=== PATIENT | female | born 1950 | race African-American/Black ===

== ENCOUNTER 2018-11-09 21:08 | Inpatient (IN) | payer OTHER ==
[~2018-11-09] VITALS: Ht 160 cm; Wt 39.6 kg
--- NOTE | 2018-11-09 21:25 | NUR ---
Patient bib w/c accompanied by daughter,caregiver. Patient is Alert but non-verbal. Patient is brought in for c/o smelly urine and unusual changes in feeding habits and sleep patterns per daughter. Respiratory even and unlabored, no cough, no sob. (+) skin tent. No v/d. Patient in bed at lowest position, side rails upx2, call light within reach. Fall precautions implemented per protocol.
[2018-11-09] MEDS ORDERED: IV NORMAL SALINE 1000 ML BAG IV ONE (21:45)
[2018-11-09 22:27] LABS: BASOPHILS % (AUTO) 0.5 % (0.0-2.0); EOSINOPHILS % (AUTO) 0.4 % (0.0-7.0); HEMATOCRIT 40.3 % (31.2-41.9); HEMOGLOBIN 13.1 g/dL (10.9-14.3); LYMPHOCYTES # (AUTO) 2.4 K/uL (20.0-40.0); LYMPHOCYTES % (AUTO) 34.6 % (20.5-51.5); MEAN CORPUSCULAR HEMOGLOBIN 29.2 uug (24.7-32.8); MEAN CORPUSCULAR HGB CONC 33 g/dL (32.3-35.6); MEAN CORPUSCULAR VOLUME 89.9 fL (75.5-95.3); MONOCYTES # (AUTO) 0.4 K/uL (2.0-10.0); MONOCYTES % (AUTO) 6.2 % (0.0-11.0); NEUTROPHILS % (AUTO) 58.3 % (38.5-71.5); PLATELET COUNT (AUTO) 192 K/uL (179-408); RED BLOOD CELL COUNT(AUTO) 4.48 MIL/uL (3.63-4.92); WHITE BLOOD COUNT (AUTO) 6.8 K/uL (3.8-11.8)
[2018-11-09 22:38] LABS: CREATININE 1.1 mg/dL (0.6-1.3); POTASSIUM 3.2 mmol/L (3.5-5.1)
[2018-11-09 22:44] LABS: BILIRUBIN,DIRECT 0.1 mg/dL (0.0-0.2); BILIRUBIN,TOTAL 0.3 mg/dL (0.2-1.0); TOTAL PROTEIN, SERUM 8.4 g/dL (6.4-8.2)
--- NOTE | 2018-11-09 22:53 | NUR ---
Per daughter, pt does not take any medications.
--- NOTE | 2018-11-09 22:55 | NUR ---
Dr. Serrano on panel call with Dr. Fito Rubi. Pt accepted for admission to [facility], diagnosis: dehydration.
--- NOTE | 2018-11-09 22:58 | NUR ---
IV fluids stopped per MD order,
--- NOTE | 2018-11-09 22:58 | NUR ---
Received call from 3rd floor, pt. to go into tele. room [id number]
[2018-11-09] MEDS ORDERED: SODIUM CHLORIDE IV ONE (23:00)
[2018-11-10] MEDS ORDERED: ACETAMINOPHEN 325 MG TABLET PO PRN (00:15)
[2018-11-10] MEDS ORDERED: IV DEXTROSE 5%-0.9%NS+20MeqKCL 1,000 ML IV PRN (00:15)
[2018-11-10] MEDS ORDERED: ONDANSETRON 4 MG/2 ML VIAL IV PRN (00:15)
[2018-11-10 00:18] LABS: *BILIRUBIN,URIN NEGATIVE (NEGATIVE); *BLOOD, URINE 3+ (NEGATIVE); *CLARITY,URINE SLIGHTLY CLOUDY (CLEAR); *COLOR,URINE YELLOW (YELLOW); *KETONES,URINE NEGATIVE (NEGATIVE); *UROBILINOGEN,URINE 0.2 E.U./dl (NORMAL); LEUKOCYTE ESTERASE ,URINE 1+ (NEGATIVE); NITRITE, URINE NEGATIVE (NEGATIVE); UGLUCOSE NEGATIVE (NEGATIVE)
[2018-11-10 00:21] LABS: BACTERIA,URINE MODERATE /HPF (NONE SEEN); RBC,URINE 50-80 /HPF (0-3); SQUAMOUS EPITHELIAL CELL,UR FEW /HPF (NONE SEEN); WBC,URINE 50-80 /HPF (0-3)
[2018-11-10 00:30] VITALS: BP 96/78
--- NOTE | 2018-11-10 00:30 | NUR ---
NEW ADMIT PATIENT RECEIVED ON UNIT WITH FAMILY MEMBER AT SIDE. PATIENT IS ALERT/ORIENTED X1 AND IS NONVERBAL WITH A HISTORY OF DEMENTIAL AND ALZHEIMER'S DISEASE AND IS BEING ADMITTED FOR DEHYDRATION. PER DAUGHTER THERE IS NO ADVANCE DIRECTIVE OR LIVING WILL. PATIENT IS ON TELE MONITOR WITH NORMAL SINUS RHYTHM. VS ARE WNL AND PATIENT IS STABLE. IV IS ON RIGHT WRIST 22 GUAGE WITH 1/2 NS @ 125 mL/HR. BECKWITH CATHETER IN PLACE AND SECURED TO LEFT LEG. DAUGHTER IS PRIMARY CAREGIVER AND PROVIDED PATIENT HISTORY DUE TO PATIENT'S CONDITION. PATIENT TAKES NO HOME MEDICATIONS. PATIENT'S LEFT BUTTOCK SHOWS EXTENSIVE SCAR WHICH IS RELATED TO A PREVIOUS INJURY THAT WAS CARED FOR IN [facility] BUT DOES NOT HAVE SPECIFIC DATE. THE REST OF PATIENT'S SKIN IS INTACT. ORDERS INITIATED FOR PT/OT EVAL DUE TO LOWER EXTREMITY WEAKNESS AND CONTRACTURE. CASE MANAGEMENT REFERRAL COMPLETED. DIETARY CONSULT INITIATED DUE TO LOW BMI OF PATIENT. WILL CONTINUE TO MONITOR.
[2018-11-10 03:49] VITALS: BP 110/68
--- NOTE | 2018-11-10 04:38 | NUR ---
PATIENT RESTED COMFORTABLY THROUGHOUT NIGHT. IV SITE PATENT AND INTACT. BECKWITH CATHETER DRAINING WELL WITH CLEAR, YELLOW URINE. CAREGIVER BY SIDE. ALL SAFETY AND FALL PRECAUTION MEASURES IN PLACE. CALL LIGHT WITHIN REACH AT ALL TIMES. WILL REPORT ACCORDINGLY TO ONCOMING SHIFT.
[2018-11-10 06:47] LABS: BASOPHILS % (AUTO) 0.3 % (0.0-2.0); EOSINOPHILS % (AUTO) 0.6 % (0.0-7.0); HEMATOCRIT 37.9 % (31.2-41.9); HEMOGLOBIN 12.2 g/dL (10.9-14.3); LYMPHOCYTES # (AUTO) 2.6 K/uL (20.0-40.0); LYMPHOCYTES % (AUTO) 31.8 % (20.5-51.5); MEAN CORPUSCULAR HGB CONC 32 g/dL (32.3-35.6); MEAN CORPUSCULAR VOLUME 90.1 fL (75.5-95.3); MONOCYTES # (AUTO) 0.6 K/uL (2.0-10.0); MONOCYTES % (AUTO) 6.8 % (0.0-11.0); NEUTROPHILS % (AUTO) 60.5 % (38.5-71.5); PLATELET COUNT (AUTO) 177 K/uL (179-408); WHITE BLOOD COUNT (AUTO) 8.3 K/uL (3.8-11.8)
[2018-11-10 06:51] LABS: THYROID STIMULATING HORMONE 2.095 mIU/mL (0.358-3.740)
[2018-11-10 07:06] LABS: BILIRUBIN,TOTAL 0.3 mg/dL (0.2-1.0); MAGNESIUM 2.4 mg/dL (1.8-2.4); PHOSPHOROUS 2.7 mg/dL (2.5-4.9); TOTAL PROTEIN, SERUM 7.6 g/dL (6.4-8.2)
[2018-11-10 07:14] LABS: POTASSIUM 2.8 mmol/L (3.5-5.1)
[2018-11-10] MEDS ORDERED: PANTOPRAZOLE SODIUM 40 MG VIAL IV SCH (07:30)
[2018-11-10] MEDS ORDERED: PIPERACILLIN/TAZOBACTAM/D5W 3.375 G in PREMIXED 1 EACH IV SCH (08:00)
[2018-11-10] MEDS ORDERED: DEXTROSE 50% 50 ML DISP.SYRIN IV PRN (08:00)
[2018-11-10] MEDS ORDERED: INSULIN REGULAR, HUMAN 300 UNIT/3 ML VIAL SQ PRN (08:00)
[2018-11-10] MEDS: POTASSIUM CHLORIDE 20 MEQ in IV D5 1/2 NS 1000 ML 1,000 ML IV PRN ×2 (08:52→21:43)
[2018-11-10] MEDS: POTASSIUM CHLORIDE 50 ML IV SCH ×4 (08:56→13:05)
[2018-11-10] MEDS: PIPERACILLIN/TAZOBACTAM/D5W 3.375 G in PREMIXED 1 EACH IV SCH ×3 (09:20→21:43)
[2018-11-10 11:01] VITALS: BP 152/70
[2018-11-10] MEDS: BLOOD SUGAR DIAGNOSTIC 1 EACH STRIP VI SCH (12:00)
[2018-11-10 16:10] VITALS: BP 137/75
--- NOTE | 2018-11-10 19:30 | NUR ---
RECEIVED PATIENT LYING IN BED WITH DAUGHTER AT BEDSIDE. PATIENT A/O X1. NO SIGNS OF ACUTE DISTRESS. FLACC SCALE 0. BED IN LOWEST POSITION. SIDE RAILS UP X2.
[2018-11-10 20:44] VITALS: BP 141/67
[2018-11-11 00:23] VITALS: BP 137/86
[2018-11-11] MEDS: BLOOD SUGAR DIAGNOSTIC 1 EACH STRIP VI SCH ×5 (00:30→17:20)
[2018-11-11] MEDS: PIPERACILLIN/TAZOBACTAM/D5W 3.375 G in PREMIXED 1 EACH IV SCH ×3 (05:16→21:18)
[2018-11-11 05:40] VITALS: BP 111/72
--- NOTE | 2018-11-11 06:49 | NUR ---
PATIENT IS ASLEEP. NO SIGNS OF SYMPTOMS OF PAIN OR ACUTE DISTRESS AT THIS TIME. NO FEVER ON THE SHIFT. NO FURTHER CHANGES AT THIS TIME.
[2018-11-11 06:51] LABS: BASOPHILS % (AUTO) 0.2 % (0.0-2.0); EOSINOPHILS # (AUTO) 0.1 K/uL (0.0-0.7); HEMATOCRIT 33.2 % (31.2-41.9); HEMOGLOBIN 10.8 g/dL (10.9-14.3); LYMPHOCYTES # (AUTO) 2.8 K/uL (20.0-40.0); LYMPHOCYTES % (AUTO) 45.8 % (20.5-51.5); MEAN CORPUSCULAR HEMOGLOBIN 29.3 uug (24.7-32.8); MEAN CORPUSCULAR HGB CONC 33 g/dL (32.3-35.6); MEAN CORPUSCULAR VOLUME 89.9 fL (75.5-95.3); MONOCYTES # (AUTO) 0.4 K/uL (2.0-10.0); MONOCYTES % (AUTO) 6.7 % (0.0-11.0); NEUTROPHILS # (AUTO) 2.9 K/uL (1.8-8.9); NEUTROPHILS % (AUTO) 46.3 % (38.5-71.5); PLATELET COUNT (AUTO) 139 K/uL (179-408); RED BLOOD CELL COUNT(AUTO) 3.69 MIL/uL (3.63-4.92); WHITE BLOOD COUNT (AUTO) 6.2 K/uL (3.8-11.8)
[2018-11-11 07:05] LABS: POTASSIUM 3.4 mmol/L (3.5-5.1)
--- NOTE | 2018-11-11 08:00 | NUR ---
RESTING IN BED WITH EYES CLOSED. NO SS OF PAIN OR DISTRESS SR ON MONITOR
[2018-11-11] MEDS ORDERED: POTASSIUM CHLORIDE 20 MEQ in IV D5W 1000ML 1,000 ML IV PRN (09:00)
[2018-11-11] MEDS ORDERED: PANTOPRAZOLE SODIUM 40 MG VIAL IV SCH (11:00)
[2018-11-11 11:16] VITALS: BP 134/73
[2018-11-11] MEDS ORDERED: BISACODYL 10 MG SUPP.RECT RC ONE (11:30)
--- NOTE | 2018-11-11 13:17 | NUR ---
REMAINS STABLE, NO VERBAL COMMUNICATIONS DURING AM CARE. DAUGHTER AT BEDSIDE SUPPORTIVE WITH CARE. DULCOLAX SUPP. GIVEN FOR NO BM X5 DAYS PER DAUGHTER
[2018-11-11 15:42] VITALS: BP 151/88
--- NOTE | 2018-11-11 17:40 | NUR ---
CONTINUE WITH CURRENT TX PLAN. REMAINS A FEEDER WITH POOR INTAKE. DAUGHTER ALWAYS AT BEDSIDE
[2018-11-11 20:06] VITALS: BP 137/96
--- NOTE | 2018-11-11 21:33 | NUR ---
Patient resting comfortably in bed at this time. No signs of distress. IVF and antibiotics running at this time. IV-access patent, flushing well, no signs of infiltration. Daughter at bedside. vital signs stable at this time. Patient does not appear to be in pain. No SOB noted. Safety measures implemented. Will continue to monitor throughout shift.
--- NOTE | 2018-11-11 22:40 | NUR ---
RECEIVED PATIENT AT THIS TIME FROM ED. STABLE CONDITION. NO SIGNS OF DISTRESS. VITAL SIGNS TAKEN. PATIENT A/Ox2. o2 saturation 93-94% - placed on O2 2L NC. PICTURES TAKEN OF LEFT/RIGHT BUNION REDNESS. ID-BAND PLACED. IV-ACCESS PATENT, FLUSHES WELL. CONSISTENT COUGH PRESENT WITH NON-PRODUCTION. BED REST AT THIS TIME DUE TO UNSTEADY GAIT AND WEAKNESS. SAFETY MEASURES IMPLEMENTED. WILL CONTINUE TO MONITOR THROUGHOUT SHIFT. Addendum: 11/12/18 at 0158 by TISH HERNANDEZ RN PLEASE DISREGARD THIS NOTE - INCORRECT PATIENT
[2018-11-12] VITALS: BP 136/87
[2018-11-12] MEDS: BLOOD SUGAR DIAGNOSTIC 1 EACH STRIP VI SCH ×2 (00:02→05:24)
--- NOTE | 2018-11-12 01:56 | NUR ---
HAND OFF REPORT GIVEN TO LINDA CANTU.
[2018-11-12 04:00] VITALS: BP 130/76
[2018-11-12] MEDS: PIPERACILLIN/TAZOBACTAM/D5W 3.375 G in PREMIXED 1 EACH IV SCH (05:24)
[2018-11-12 06:51] LABS: BASOPHILS % (AUTO) 0.2 % (0.0-2.0); EOSINOPHILS # (AUTO) 0.1 K/uL (0.0-0.7); EOSINOPHILS % (AUTO) 1.8 % (0.0-7.0); HEMATOCRIT 36.8 % (31.2-41.9); HEMOGLOBIN 11.8 g/dL (10.9-14.3); LYMPHOCYTES % (AUTO) 53.8 % (20.5-51.5); MEAN CORPUSCULAR HEMOGLOBIN 28.6 uug (24.7-32.8); MEAN CORPUSCULAR HGB CONC 32 g/dL (32.3-35.6); MEAN CORPUSCULAR VOLUME 88.8 fL (75.5-95.3); MONOCYTES # (AUTO) 0.3 K/uL (2.0-10.0); NEUTROPHILS # (AUTO) 2.1 K/uL (1.8-8.9); NEUTROPHILS % (AUTO) 38.2 % (38.5-71.5); PLATELET COUNT (AUTO) 144 K/uL (179-408); RED BLOOD CELL COUNT(AUTO) 4.14 MIL/uL (3.63-4.92); WHITE BLOOD COUNT (AUTO) 5.6 K/uL (3.8-11.8)
[2018-11-12 06:58] LABS: CREATININE 0.9 mg/dL (0.6-1.3); POTASSIUM 3.7 mmol/L (3.5-5.1)
--- NOTE | 2018-11-12 07:14 | NUR ---
PATIENT SLEEPING AT PRESENT. NO S/S OF PAIN OR ACUTE DISTRESS ON THIS SHIFT. NO FEVER ON THIS SHIFT, NO FURTHER CHANGES IN STATUS AT PRESENT
--- NOTE | 2018-11-12 07:17 | NUR ---
RESTING IN BED WITH EYES CLOSED NO SS OF PAIN OR SOB WITH DAUGHTER AT BEDSIDE
[2018-11-12] MEDS ORDERED: AMOX500C2 PO (10:31)
[2018-11-12] MEDS ORDERED: LACT-246 PO (10:31)
[2018-11-12] MEDS ORDERED: POTA20PA40 PO (10:31)
--- NOTE | 2018-11-12 11:15 | NUR ---
SEEN BY JANETTE SACK CLEANING HAND WITH DC ORDER. SPOKE WITH DAUGHTER/FOUNTAIN VENDING MECHANIC. PATIENT IS GOING HOME WITH HOME HEALTH FOLLOW-UP
[2018-11-12 11:33] VITALS: BP 125/72
--- NOTE | 2018-11-12 11:40 | NUR ---
DISCHARGED HOME STABLE WITH DAUGHTER VIA PRIVATE CAR. RX AND FOLLOW-UP INSTRUCTION GIVEN
--- NOTE | 2018-11-13 09:06 | NUR ---
INFORMATION SENT: FACESHEET,PROGRESS NOTES 11/11,11/12,UR-11/11,11/12,24 HOURS REPORT,DISCHARE SUMMARY INSURANCE NAME: [employer] [facility] / /[facility] FAX NUMBER: [phone] / [phone] FAX SENT
--- NOTE | 2018-11-14 08:07 | NUR ---
INFORMATION SENT:NETTA MORALES SUMMARY INSURANCE NAME:[facility] FAX NUMBER:[phone] FAX SENT
--- NOTE | 2018-11-15 07:49 | NUR ---
INFORMATION SENT: NETTA MORALES SUMMARY INSURANCE NAME: [employer] COUNTS [facility]CLUDE [facility] FAX NUMBER: [phone] / [phone] FAX SENT
== END 2018-11-12 11:40 | disposition home health service (06) | DRG 689 ==
LOC: ER 21:08 → TELE3 11-10 00:03
PROVIDERS: ADMIT Internal Medicine; ATTEND Nurse Practitioner Acute Care
DX: N39.0 Urinary tract infection, site not specified (principal); G92 Toxic encephalopathy; E44.0 Moderate protein-calorie malnutrition; Z68.1 Body mass index [BMI] 19.9 or less, adult; E87.0 Hyperosmolality and hypernatremia; E86.0 Dehydration; N28.9 Disorder of kidney and ureter, unspecified; F03.90 Unspecified dementia, unspecified severity, without behavioral disturbance, psychotic disturbance, mood disturbance, and anxiety; Z99.3 Dependence on wheelchair; B96.89 Other specified bacterial agents as the cause of diseases classified elsewhere; R80.9 Proteinuria, unspecified; R62.7 Adult failure to thrive; E87.6 Hypokalemia; Z86.19 Personal history of other infectious and parasitic diseases; K59.00 Constipation, unspecified; E78.5 Hyperlipidemia, unspecified
CPT/HCPCS: 36415; 70030-TC; 71045; 83550; 83605; 83690; 83735; 84100; 84443; 85025; 85730; 87040; 87077; 87086; 87400; 93005; 97116; 97165; 97530; 97535; A4663; C1758; C9113; G0378; J1815; J2543; J3480; J3490; J7030; J7070